=== PATIENT | female | born 2000 | race Caucasian/White ===

== ENCOUNTER 2022-09-22 11:40 | Inpatient (IN) | payer OTHER ==
[~2022-09-22] VITALS: Ht 165.1 cm; Wt 70.8 kg
[2022-09-22] MEDS ORDERED: CARBOPROST 250 MCG/ML AMP IM PRN (12:15)
[2022-09-22] MEDS ORDERED: METHYLERGONOVINE 0.2 MG/ML AMP IM PRN (12:15)
[2022-09-22] MEDS ORDERED: OXYTOCIN 10 UNITS/ML VIAL IM SCH (12:15)
[2022-09-22] MEDS ORDERED: OXYTOCIN 20 UNITS in LACTATED RINGERS 1,000 ML IV SCH (12:25)
[2022-09-22 12:56] LABS: BASOPHILS # (AUTO) 0.1 K/uL (0.00-0.22); BASOPHILS % (AUTO) 0.6 % (0.0-2.0); HEMATOCRIT 38.5 % (36-48); HEMOGLOBIN 12.9 g/dL (12.0-16.0); LYMPHOCYTES # (AUTO) 1.2 K/uL (2.5-16.5); LYMPHOCYTES % (AUTO) 7.7 % (20.5-51.1); MEAN CORPUSCULAR HEMOGLOBIN 30 pg (27-31); MEAN CORPUSCULAR HGB CONC 33 g/dL (33-37); MEAN CORPUSCULAR VOLUME 88.6 fL (80-94); MONOCYTES # (AUTO) 0.5 K/uL (0.8-1.0); MONOCYTES % (AUTO) 3.1 % (1.7-9.3); NEUTROPHILS # (AUTO) 14.1 K/uL (1.8-7.7); NEUTROPHILS % (AUTO) 88.6 % (42.2-75.2); PLATELET COUNT (AUTO) 189 K/uL (140-450); RED BLOOD CELL COUNT(AUTO) 4.35 MIL/uL (4.20-5.40); RED CELL DISTRIBUTION WIDTH 13.8 % (11.6-13.7); WHITE BLOOD COUNT (AUTO) 15.9 K/uL (4.8-10.8)
[2022-09-22] MEDS: LACTATED RINGERS 1,000 ML IV SCH (13:35)
[2022-09-22 13:47] LABS: INR 0.84 (0.8-1.2); PROTHROMBIN TIME 8.9 secs (10.8-13.4)
[2022-09-22 13:48] LABS: BILIRUBIN,URINE NEGATIVE (NEGATIVE); BLOOD, URINE 1+ (NEGATIVE); COLOR,URINE YELLOW (YELLOW); LEUKOCYTE ESTERASE ,URINE NEGATIVE (NEGATIVE); NITRITE, URINE NEGATIVE (NEGATIVE); PROTEIN,URINE 1+ (NEGATIVE); UGLUCOSE NEGATIVE (NEGATIVE); UROBILINOGEN,URINE 0.2 EU/dL (0.2 - 1)
[2022-09-22 13:51] LABS: ALBUMIN 2.6 g/dL (3.4-5.0); ANION GAP 17.9 (8-16); CALCIUM 8.5 mg/dL (8.5-10.1); CARBON DIOXIDE 20.1 mmol/L (21-32); CREATININE 0.6 mg/dL (0.6-1.3); TOTAL BILIRUBIN 0.7 mg/dL (0.0-1.0); TOTAL PROTEIN, SERUM 6.6 g/dL (6.4-8.2)
[2022-09-22] MEDS ORDERED: AMPICILLIN 2,000 MG in NACL 0.9% MINI-BAG PLUS 100 ML IV SCH (14:05)
[2022-09-22 14:13] LABS: PARTIAL THROMBOPLASTIN TIME 26.6 secs (22-35.6)
[2022-09-22] MEDS ORDERED: AMPICILLIN 2,000 MG VIAL ONE (14:20)
[2022-09-22 14:23] LABS: APPEARANCE,URINE HAZY (CLEAR)
[2022-09-22 14:24] LABS: SQUAMOUS EPITHELIAL CELL,UR 0-3 (FEW) /LPF (0-3 (FEW)); WBC,URINE 0-5 /HPF (0-5)
[2022-09-22 14:25] LABS: BACTERIA,URINE 10-30 (MOD) /HPF (None Seen)
[2022-09-22] MEDS ORDERED: fentaNYL citrate 0.05 MG/ML VIAL ONE (14:49)
[2022-09-22] MEDS ORDERED: ROPIVACAINE 0.2%/NS PREMIX 200 ML EPI ONE (14:49)
[2022-09-22] MEDS ORDERED: OXYTOCIN 20 UNITS/LR PREMIX 1,000 ML IV ONE (17:51)
[2022-09-22] MEDS ORDERED: AMPICILLIN 1,000 MG VIAL ONE ×2 (17:52→22:00)
[2022-09-22] MEDS: AMPICILLIN 1,000 MG in NACL 0.9% MINI-BAG PLUS 50 ML IV SCH (18:28)
[2022-09-22 19:47] VITALS: BP 122/70; PULSE 81; RESP 18; TEMP 98.2; O2SAT 97
[2022-09-23] MEDS: LACTATED RINGERS 1,000 ML IV SCH ×2 (00:50→09:01)
[2022-09-23] MEDS ORDERED: AMPICILLIN 1,000 MG VIAL ONE ×3 (02:00→10:35)
[2022-09-23] MEDS: AMPICILLIN 1,000 MG in NACL 0.9% MINI-BAG PLUS 50 ML IV SCH ×2 (02:33→10:41)
[2022-09-23] MEDS ORDERED: ROPIVACAINE 0.2%/NS PREMIX 200 ML EPI ONE (05:25)
[2022-09-23] MEDS ORDERED: METHYLERGONOVINE 0.2 MG/ML AMP IM PRN (12:25)
[2022-09-23] MEDS ORDERED: IBUPROFEN 800 MG TAB PO PRN (12:25)
[2022-09-23] MEDS ORDERED: TEMAZEPAM 15 MG CAP PO PRN (12:25)
[2022-09-23] MEDS ORDERED: OXYTOCIN 10 UNITS/ML VIAL IM PRN (12:25)
[2022-09-23] MEDS ORDERED: oxyCODONE/APAP 5/325 MG 1 TAB TAB PO PRN (12:25)
[2022-09-23] MEDS ORDERED: METHYLERGONOVINE 0.2 MG TAB PO PRN (12:25)
[2022-09-23] MEDS: oxyCODONE/APAP 5/325 MG 1 TAB TAB PO PRN (17:49)
[2022-09-23] MEDS ORDERED: DOCUSATE SOD/SENNA 50/8.6 MG 1 TAB PO SCH (21:00)
[2022-09-24] MEDS: oxyCODONE/APAP 5/325 MG 1 TAB TAB PO PRN (07:03)
[2022-09-24 07:06] LABS: HEMOGLOBIN 10.4 g/dL (12.0-16.0)
[2022-09-25] MEDS: oxyCODONE/APAP 5/325 MG 1 TAB TAB PO PRN (04:12)
== END 2022-09-25 15:50 | disposition home or self-care (01) | DRG 560 ==
LOC: MLD 11:40 → OBSVTOIN 12:17 → MFCC 09-23 15:25
PROVIDERS: ADMIT Obstetrics & Gynecology; ATTEND Obstetrics & Gynecology
PROC: 10D07Z6 Extraction of Products of Conception, Vacuum, Via Natural or Artificial Opening (ICD-10-PCS; principal; 2022-09-23)
PROC: 0HQ9XZZ Repair Perineum Skin, External Approach (ICD-10-PCS; 2022-09-23)
PROC: 3E0R3BZ Introduction of Anesthetic Agent into Spinal Canal, Percutaneous Approach (ICD-10-PCS; 2022-09-23)
PROC: 00HU33Z Insertion of Infusion Device into Spinal Canal, Percutaneous Approach (ICD-10-PCS; 2022-09-23)
DX: O76 Abnormality in fetal heart rate and rhythm complicating labor and delivery (principal); Z37.0 Single live birth; R71.0 Precipitous drop in hematocrit; O70.0 First degree perineal laceration during delivery; O99.824 Streptococcus B carrier state complicating childbirth; Z20.822 Contact with and (suspected) exposure to COVID-19; Z3A.38 38 weeks gestation of pregnancy
CPT/HCPCS: 36415; 51702; 80053; 81001; 85018; 85025; 85610; 85730; 86592; 86886; 86900; 86901; 87086; 90715; J0290; J2590; J2795; J3010; J7120